=== PATIENT | female | born 1985 | race Two or more races ===

== ENCOUNTER 2020-11-30 09:34 | Emergency (ER) | payer OTHER ==
[~2020-11-30] VITALS: Ht 154.9 cm; Wt 59.0 kg
[2020-11-30 09:39] VITALS: BP 94/68
[2020-11-30 10:09] LABS: Urine WBC None Seen /hpf (0 - 5)
[2020-11-30 10:29] LABS: Basophils # (auto) 0 10 ^3/uL (0-0.2); Basophils % (auto) 0.5 % (0.0-2.0); Eosinophils # (auto) 0.2 10 ^3/uL (0-0.8); Eosinophils % (auto) 2.3 % (0.0-7.0); Hematocrit 33.7 % (36.0-46.0); Hemoglobin 11.6 g/dL (12.2-16.2); Lymphocytes # (auto) 1.7 10 ^3/uL (0.4-5.4); Lymphocytes % (auto) 20.6 % (10.0-50.0); Mean Corpuscular Hemoglobin 29.6 pg (28.0-32.0); Mean Corpuscular Hgb Conc. 34.5 g/dL (32.0-36.0); Mean Corpuscular Volume 85.9 fL (80.0-100.0); Monocytes # (auto) 0.8 10 ^3/uL (0-1.3); Monocytes % (auto) 9.5 % (0.0-12.0); Neutrophils # (auto) 5.6 10 ^3/uL (1.6-8.6); Neutrophils % (auto) 67.1 % (37.0-80.0); Platelet Count (auto) 262 10^3/uL (140-450); Red Blood Cells 3.93 10^6/uL (4.0-5.20); Red Cell Distribution Width 13.8 % (11.8-14.3); White Blood Cell 8.3 10^3/uL (4.4-10.8)
[2020-11-30 10:37] LABS: Potassium 3.9 mmol/L (3.5-5.1)
[2020-11-30 10:37] LABS: Urine Bacteria FEW /hpf (None Seen); Urine Blood Negative /uL (Negative)
[2020-11-30 10:49] LABS: Albumin 3.3 g/dL (3.4-5.0); BUN/Creatinine Ratio 20.8; Bilirubin, Total 0.4 mg/dL (0.2-1.0); Calcium 8.4 mg/dL (8.5-10.1)
== END 2020-11-30 12:05 | disposition left against medical advice (07) ==
LOC: ER 09:34
DX: R10.84 Generalized abdominal pain (principal); L03.311 Cellulitis of abdominal wall; Z98.51 Tubal ligation status
CPT/HCPCS: 36415; 74176; 80053; 81001; 82150; 83690; 85025

== ENCOUNTER 2020-11-30 13:14 | Emergency (ER) | payer SELFPAY ==
[~2020-11-30] VITALS: Ht 154.9 cm; Wt 59.0 kg
[2020-11-30 13:24] VITALS: BP 103/65
== END 2020-11-30 14:00 | disposition left against medical advice (07) ==
LOC: ER 13:14
DX: R10.84 Generalized abdominal pain (principal); L03.311 Cellulitis of abdominal wall